=== PATIENT | female | born 1995 | race Caucasian/White ===

== ENCOUNTER 2020-02-02 10:54 | Outpatient (CLI) | payer OTHER, MEDICAID, SELFPAY ==
[2020-02-02 12:02] LABS: SARS-CoV-2 Ag Negative (Negative)
== END 2020-02-02 10:55 | disposition home or self-care (01) ==
LOC: CHSLAB 11:01
PROVIDERS: PCP Family Medicine; Visit Provider Family Medicine
DX: Z20.828 Contact with and (suspected) exposure to other viral communicable diseases (principal)
CPT/HCPCS: 87426

== ENCOUNTER 2020-02-06 14:03 | Emergency (ER) | payer OTHER, SELFPAY ==
[2020-02-06] VITALS (10 sets, daily range): BP systolic 133–157; BP diastolic 76–98; PULSE 51–102; RESP 11–20; TEMP 36.1; O2SAT 95–100
--- NOTE | ~2020-02-06 | CT_ITS ---
EXAMINATION: CT abdomen pelvis w con DATE: 02/06/2020 16:01 INDICATION: Nausea. Emesis. TECHNIQUE: Computed tomography (CT) of the abdomen and pelvis was performed with 100 cc Omnipaque 350 intravenous contrast. The dose-length product was 299.33 mGy-cm. Automated exposure control and iter ative reconstruction technique were employed. COMPARISON: None. FINDINGS: Lung bases are unremarkable. Heart size normal. No significant pleural or pericardial effus ion. No significant vascular abnormality. Gallbladder is mildly distended. No lymphadenopathy. The liver, spleen, pancreas, adrenal glands and kidneys are unremarkable. There is a 2 cm right adnex al cyst, likely ovarian. No free fluid. No free air. Nonobstructive bowel gas pattern. Appendix is un remarkable. No acute osseous abnormality. IMPRESSION: 1. Right adnexal cyst measuring 2 cm, likely ovarian. 2: No acute abnormality of the abdomen or pelvis. Reviewed, dictated and finalized at location A. [employer]
[2020-02-06] MEDS: ONDANSETRON INJ 4 MG/2 ML VIAL (14:33)
[2020-02-06] MEDS: SODIUM CHLORIDE 0.9% IV 1,000 ML 999 ML (14:33)
[2020-02-06 15:04] LABS: Basophils Absolute Auto 0.04 K/mm3 (0.00-0.10); Basophils Percent Auto 0.3 % (0.0-1.0); Eosinophils Absolute Auto 0.03 K/mm3 (0.02-0.50); Eosinophils Percent Auto 0.2 % (1.0-6.0); Hematocrit 38.9 % (35.0-49.0); Hemoglobin 12.9 g/dL (12.0-15.0); Immature Granulocyte Absolute 0.08 K/mm3 (0.00-0.00); Immature Granulocyte Percent A 0.6 % (0.0-0.0); Lymphocytes Absolute Auto 1.81 K/mm3 (1.10-4.50); Lymphocytes Percent Auto 13.7 % (18.0-42.0); Mean Corpuscular HGB Conc 33.2 g/dL (32.0-36.0); Mean Corpuscular Hemoglobin 30.6 pg (27.0-31.0); Mean Corpuscular Volume 92.4 fL (78.0-102.0); Mean Platelet Volume 10.6 fl (9.2-11.8); Monocytes Absolute Auto 0.39 K/mm3 (0.10-0.90); Neutrophils Absolute Auto 10.8 K/mm3 (1.7-7.2); Neutrophils Percent Auto 82.2 % (50.0-70.0); Platelet Count Result 283 K/mm3 (150-420); Red Blood Count 4.21 M/mm3 (4.20-5.40); Red Cell Distribution Width 12.2 % (11.6-14.4); White Blood Count 13.2 K/mm3 (4.8-10.8)
[2020-02-06 15:18] LABS: Alanine Aminotransferase 28 U/L (14-59); Albumin Level 4.4 g/dL (3.4-5.0); Alkaline Phosphatase 65 U/L (46-116); Amylase 26 U/L (25-115); Anion Gap 11 mmol/L (8-16); Aspartate Amino Transferase 17 U/L (15-37); Bilirubin,Total 0.2 mg/dL (0.00-1.00); Blood Urea Nitrogen 18 mg/dL (7-18); Calcium 9.1 mg/dL (8.5-10.1); Carbon Dioxide 24 mmol/L (21-32); Chloride 106 mmol/L (98-108); Estimated CRCL calculation 90 ml/min; Estimated Glomerular Filt Rate > 60; Glucose 143 mg/dL (70-99); Lipase 45 U/L (73-393); Osmolality Calculated 295 mOsm/kg (285-295); Sodium 141 mmol/L (136-145); Total Protein 8.2 g/dL (6.4-8.2)
[2020-02-06 15:39] LABS: Appearance Urine Clear (Clear); Bilirubin Urine Negative (Negative); Color Urine Yellow (Yellow); Glucose Urine UA Negative (Negative); Ketones Urine 1+ (Negative); Leukocyte Esterase Ur Negative (Negative); Nitrate Urine Negative (Negative); Protein Urine 2+ (Negative); Urobilinogen Urine 0.2 mg/dL (0.2-1.0); pH Urine 8.5 (5.0-8.0)
[2020-02-06 15:40] LABS: Pregnancy On Board Control Positive; Urine Pregnancy Test Negative
[2020-02-06 15:46] LABS: Add Urine Microscopic? YES; Blood Urine Trace-Intact (Negative)
[2020-02-06 15:47] LABS: Bacteria Urine 2+ /hpf; Mucus Urine Few /lpf; Squamous Epithelial Cell Urine Moderate /hpf (Few); WBC Urine 0-3 /hpf (0-3)
--- NOTE | 2020-02-06 16:27 | ED.NAVMDI ---
HPI - Nausea/Vomiting/Diarrhea General Source: patient Mode of arrival: ambulatory Limitations: no limitations History of Present Illness HPI Narrative: She complains of having a cough and fever at home. She has had emesis since 8am. MD elicited complaint: nausea and vomiting Description of vomiting: food contents Associated nausea: Yes Associated abdominal pain: Yes Location of pain: diffuse Pain consistency: colicky Severity: moderate Quality: cramping Exacerbating factors: none Relieving factors: none Context: possible food poisoning and marijuana use Associated symptoms: denies other symptoms Related Data Allergies Allergy/AdvReac Type Severity Reaction Status Date / Time tramadol Allergy Rash Verified 02/06/20 14:38 Review of Systems Constitutional: Constitutional: Reports no additional constitutional complaints Eyes: Eyes: Reports no additional eye complaints ENT: Reports system reviewed and no additional complaints, except as documented Cardiovascular: Cardiovascular: Reports no additional cardiovascular complaints Respiratory: Respiratory: Reports no additional respiratory complaints Gastrointestinal: Gastrointestinal: Reports abdominal pain, Reports bloating, Reports nausea and Reports vomiting Genitourinary: Genitourinary: Reports no additional female genitourinary complaints Musculoskeletal: Musculoskeletal: Reports no additional musculoskeletal complaints Integumentary/Breasts: Skin/Breast: Reports system reviewed and no additional complaints, except as docu Neurologic: Reports system reviewed and no additional complaints, except as documented Psychiatric: Psychiatric: Reports no additional psychiatric complaints Endocrine: Endocrine: Reports no additional endocrine complaints Hematologic/Lymphatic: Hematologic/Lymphatic: Reports no additional hematologic/lymphatic complaints Allergic/Immunologic: Allergic/Immunologic: Reports no additional allergic/immunologic complaints [facility] Past Medical History Medical History (Updated 02/07/20 @ 08:22 by Watson Finney MD) No significant family history No significant medical problems No significant medical problems Surgical History Surgical History (Updated 02/07/20 @ 08:23 by Watson Finney MD) No significant past surgical history Family History Family History Other No significant family history Social History Social History (Updated 02/07/20 @ 08:24 by Watson Finney MD) Smoking status: Current every day smoker Tobacco type: cigarettes Substance use: current Substance use type: marijuana Exam Const: General: no acute distress HENMT: Head: normal to inspection Ears: TM's normal bilaterally Face and sinus: normal facial exam Eyes: Conjunctivae: conjunctivae normal Neck: Neck: normal visual inspection and no lymphadenopathy Chest: Chest palpation & inspection: normal inspection of the chest Resp: Effort & Inspection: normal respiratory effort Auscultation: clear to auscultation bilaterally Cardio: Rate: regular rate Rhythm: regular rhythm GI: GI Palp: Yes Soft to palpation Other: no tenderness Skin: General skin exam: normal color Neuro: General: patient oriented x3 and moves all extremities Extrem: General: normal to inspection Psych: Appearance: grossly normal Mental Status: mental status grossly normal Thought content: Yes Normal thought content present Course Course Emergency Course: Labs and Ct were reviewed with her. She was given zofran which helped her a lot. Vital Signs Vital signs: Vital Signs Temperature 36.1 C L 02/06/20 14:03 Pulse Rate 81 02/06/20 14:03 Respiratory Rate 20 02/06/20 14:03 Blood Pressure 145/91 H 02/06/20 14:03 Pulse Oximetry 95 02/06/20 14:03 Temperature 36.1 C L 02/06/20 14:03 Pulse Rate 82 02/06/20 15:35 Respiratory Rate 15 02/06/20 16:38 Blood Pressure 157/91 H 02/06/20 15:35 Pulse Ox
== END 2020-02-06 16:39 | disposition home or self-care (01) ==
PROVIDERS: Emergency Provider Emergency Medicine; PCP Family Medicine
DX: A05.9 Bacterial foodborne intoxication, unspecified (principal)
CPT/HCPCS: 36415; 74177; 80053; 81001; 81025; 82150; 83690; 85025; 96361; 96374; 99283; 99284; J2405; J7030; Q9965; Q9967

== ENCOUNTER 2020-11-02 10:13 | Outpatient (CLI) | payer OTHER, MEDICAID, SELFPAY ==
[2020-11-02 11:10] LABS: SARS-CoV-2 Ag Positive (Negative)
== END 2020-11-02 10:14 | disposition home or self-care (01) ==
PROVIDERS: PCP Family Medicine; Visit Provider Nurse Practitioner
DX: U07.1 COVID-19 (principal)
CPT/HCPCS: 87426; C9803